=== PATIENT | male | born 1970 | race Caucasian/White ===

== ENCOUNTER → 2022-01-14 | Day surgery (SDC) | payer BC ==
[~2022-01-14] MED LIST: Ketamine 200 MG/20 ML MDV ONE; Lactated Ringers 1,000 ML IV SCH; Midazolam 1 MG/ML 2 ML SDV ONE; Propofol 200 MG/20 ML SDV ONE; fentaNYL 50 MCG/ML SDV ONE
== END ==
LOC: CC.SDS 06:42
PROVIDERS: ATTEND Family Medicine
DX: Z12.11 Encounter for screening for malignant neoplasm of colon (principal); K57.30 Diverticulosis of large intestine without perforation or abscess without bleeding; F41.9 Anxiety disorder, unspecified; I10 Essential (primary) hypertension; K21.9 Gastro-esophageal reflux disease without esophagitis; E66.9 Obesity, unspecified; N40.1 Benign prostatic hyperplasia with lower urinary tract symptoms; E78.00 Pure hypercholesterolemia, unspecified; R73.03 Prediabetes; Z79.899 Other long term (current) drug therapy; Z98.890 Other specified postprocedural states; Z68.37 Body mass index [BMI] 37.0-37.9, adult
CPT/HCPCS: J2250; J2704; J3010; J7120

== ENCOUNTER 2022-06-07 14:49 | Emergency (ER) | payer BC | END 2022-06-07 16:27 | disposition home or self-care (01) | LOC: CC.ED 14:49 | DX: R42 Dizziness and giddiness (principal); G62.9 Polyneuropathy, unspecified; R03.0 Elevated blood-pressure reading, without diagnosis of hypertension; Z88.1 Allergy status to other antibiotic agents | CPT/HCPCS: 36415; 80053; 84484; 85025; 85610; 93005; 93010; 99284 ==